=== PATIENT | female | born 1950 | race Caucasian/White ===

== ENCOUNTER 2017-05-11 20:52 | Emergency (ER) | payer OTHER | END 2017-05-11 22:52 | disposition home or self-care (01) | LOC: ERS 20:52 | DX: J01.10 Acute frontal sinusitis, unspecified (principal); E11.9 Type 2 diabetes mellitus without complications; K21.9 Gastro-esophageal reflux disease without esophagitis; I10 Essential (primary) hypertension; Z79.899 Other long term (current) drug therapy; Z79.84 Long term (current) use of oral hypoglycemic drugs | CPT/HCPCS: 99283 ==

== ENCOUNTER 2017-05-13 11:29 | Day surgery (SDC) | payer OTHER ==
[2017-05-12 10:12] VITALS: BMI 44.2
[2017-05-13] MEDS ORDERED: Lidocaine 1% PF 5 ML VIAL ONE (14:15)
--- NOTE | 2017-05-13 15:28 | OP ---
DATE OF PROCEDURE: 05/13/2017 SURGEON: Milad Yadav M.D. PREOPERATIVE DIAGNOSES: 1. Colorectal cancer screening. 2. Chronic abdominal bloating, nausea, and edema in the lower extremities. 3. History of fatty liver on ultrasound, mild elevation of AST and ALT, serologic evaluation 017 was negative for autoimmune liver disease, hemochromatosis, Dialn's disease, alpha 1 antitrypsin disease or viral hepatitis, AFP, hepatoma screening was negative. POSTOPERATIVE DIAGNOSES: 1. EGD normal with no evidence of varices. 2. Colonoscopy notable for 3 polyps from the splenic flexure to the transverse colon removed by snar e polypectomy from 3-5 mm in size. RECOMMENDATIONS: 1. Await histopathology regarding timing of repeat colonoscopy. 2. With regard to fatty liver recommend she follow up in 6 months, recommended low carbohydrate diet , weight loss. 3. Regarding anasarca and edema in the lower extremities, I recommend she follow up with her primary physician and Cardiology. No signs of overt cirrhosis. ANESTHESIA: TIVA. PROCEDURE IN DETAIL: After the patient was informed of the risks, benefits, possible complications o f endoscopy including perforation, bleeding, reaction to medication, and aspiration, informed consent was obtained. The patient brought to endoscopy suite where she was sedated in gradual fashion. Onc e she was comfortable, a bite block was placed in incisural orifice. The endoscope was advanced thro ugh the esophagus, stomach and second and third portion of duodenum and slowly removed. There was go od visualization of the esophagus, stomach and second and third portion of duodenum with no abnormali ties noted. Forward and retroflexed views in the stomach were normal. There was no evidence of port al hypertensive gastropathy or varices in the esophagus or stomach. The scope was removed. The patient was turned in the room. A rectal examination was performed. The endoscope was advanced through anal canal through the colon to cecum was identified by ileocecal valve and appendiceal orifi ce. The scope was then slowly removed with good visualization of the mucosa with a few diverticula s cattered throughout the colon. There were 3 polyps at transverse and splenic flexure of the colon up to 5 mm in size. These were sessile, removed by snare polypectomy, retrieved and submitted to Patho logy. Retroflexed views in the rectum were normal. The scope was removed. The patient tolerated th e procedure well with no complications.
== END 2017-05-13 16:05 | disposition home or self-care (01) ==
LOC: SDC 11:29
PROVIDERS: ATTEND Internal Medicine Gastroenterology
PROC: 0DJ08ZZ Inspection of Upper Intestinal Tract, Via Natural or Artificial Opening Endoscopic (ICD-10-PCS; principal; 2017-05-13)
PROC: 0DBL8ZX Excision of Transverse Colon, Via Natural or Artificial Opening Endoscopic, Diagnostic (ICD-10-PCS; principal; 2017-05-13)
DX: Z12.11 Encounter for screening for malignant neoplasm of colon (principal); D12.3 Benign neoplasm of transverse colon; R14.0 Abdominal distension (gaseous); K21.9 Gastro-esophageal reflux disease without esophagitis; E83.119 Hemochromatosis, unspecified; E83.01 Wilson's disease; E88.01 Alpha-1-antitrypsin deficiency; R60.1 Generalized edema; K76.0 Fatty (change of) liver, not elsewhere classified; E11.9 Type 2 diabetes mellitus without complications; M19.90 Unspecified osteoarthritis, unspecified site; M10.9 Gout, unspecified; Z79.84 Long term (current) use of oral hypoglycemic drugs; Z79.51 Long term (current) use of inhaled steroids; Z79.899 Other long term (current) drug therapy; Z88.6 Allergy status to analgesic agent; Z88.1 Allergy status to other antibiotic agents; Z88.8 Allergy status to other drugs, medicaments and biological substances; Z98.51 Tubal ligation status; Z90.49 Acquired absence of other specified parts of digestive tract; Z98.890 Other specified postprocedural states; Z86.711 Personal history of pulmonary embolism
CPT/HCPCS: 88305; J2001

== ENCOUNTER 2017-05-30 19:35 | Inpatient (IN) | payer OTHER ==
[~2017-05-30 19:35] MED LIST: ISOVUE-370 76%-LOCM 1 ML ONE
--- NOTE | 2017-05-30 21:10 | CT ---
CTA THORAX WITH CONTRAST: 05/30/17 (Computed Tomographic Angiography, chest(noncoronary) with contrast material, and image postprocessin g) (PE protocol) HISTORY: 66-year-old female with dyspnea and chest pain. TECHNIQUE: IV injection of iodinated contrast: Isovue Scan acquisition timing attempted to coincide with iodinated contrast bolus reaching maximal density in pulmonary arteries. 3D MIP reconstructions. FINDINGS: There is no evidence of pulmonary thromboembolism. No thoracic aortic dissection or aneurysm. Multipl e mildly enlarged mediastinal lymph nodes, nonspecific. No pleural effusion or pneumothorax. Plate-li ke densities, one at the right lower lobe and another at the lingula, consistent with either subsegme ntal atelectasis or scar. Otherwise, the lungs are clear. The cardiac size is mildly enlarged. No pne umothorax. IMPRESSION: 1. No evidence of pulmonary thromboembolism. 2. Borderline or mild cardiomegaly. [email or web address][] POS: [facility]
[2017-05-30 21:22] LABS: Troponin I Less than 0.010 ng/mL (< 0.028)
[2017-05-30] MEDS ORDERED: Ondansetron HCl/PF 4 MG/2 ML Vial IVP PRN (22:59)
[2017-05-30] MEDS ORDERED: Ondansetron ODT 4 MG TAB SL PRN (22:59)
[2017-05-30] MEDS ORDERED: Sodium Chloride 0.9% 1,000 ML IV SCH (22:59)
[2017-05-30 23:07] VITALS: BMI 43.1
[2017-05-31] MEDS ORDERED: Dextrose 50% Abboject 50 ML SYRINGE SLOW IVP PRN (01:47)
[2017-05-31] MEDS ORDERED: Dextrose 5% in Water 1,000 ML IV PRN (01:47)
[2017-05-31] MEDS ORDERED: HumaLOG 300 UNITS/3 ML VIAL SC PRN (01:47)
--- NOTE | 2017-05-31 01:58 | PDOC.EVN ---
Event Note - Event Note Event Note: [id number] h&p dictated 1. Chest pain + Dyspnea 2. HTN 3. Edema 4. Hyponatremia plan: see orders
--- NOTE | 2017-05-31 02:37 | HP ---
DATE OF ADMISSION: 05/31/2017 CHIEF COMPLAINT: Dyspnea, chest pain. HISTORY OF PRESENT ILLNESS: Patient is a 66-year-old female with past medical history of hypertensio n, gout, diabetes mellitus type 2, now came to ER because of chest pain. Chest pain started all of s udden this afternoon associated with some dyspnea also. Pain is moderate in intensity. Denies any r adiation, substernal, mild. Denies any pain at this time. Complains of dyspnea associated with even minimal exertion. Denies any cough, denies any sputum production, denies any nausea, denies any vom iting, denies any diarrhea. Chest pain did not radiate anywhere, currently pain resolved. PAST MEDICAL HISTORY: History of hypertension, gout, diabetes type 2. PAST SURGICAL HISTORY: Carpal tunnel surgery, tubal ligation. MEDICATIONS: Reviewed. SOCIAL HISTORY: Denies smoking, denies alcohol, denies any illicit drugs. FAMILY HISTORY: Positive for heart problems. REVIEW OF SYSTEMS: Constitutional: Denies any fever, denies any chills. Eyes: Denies any vision p roblems. Ears: Denies any hearing loss. Neck: Denies any neck pain. Cardiovascular system: Posi tive for chest pain. Positive for dyspnea. Respiratory system: Positive for cough. Cranial nerve s ystem: Denies syncope. Denies any lightheadedness. Psychiatric: Denies any depression, anxiety. Integument: Denies any rash. All other review of systems are reviewed and are negative. PHYSICAL EXAMINATION: CONSTITUTIONAL/VITAL SIGNS: At the time of H&P performed temperature is 99, heart rate is 83, respir ations 20, blood pressure is 95, blood pressure is 129/84, pulse ox 95%. GENERAL: Patient appears comfortable. HEENT: Pupils equal, round, and reactive to light. Anterior nares patent. Nose normal. Teeth inta ct. Tongue is moist. NECK: Supple. No JVD. CARDIOVASCULAR SYSTEM: S1, S2 present. Regular rate and rhythm. No murmurs, no rubs, no gallops. RESPIRATORY SYSTEM: No wheezing, no rhonchi. Breath sounds present bilaterally. ABDOMEN: Soft, nontender, no guarding, no organomegaly, no masses felt. MUSCULOSKELETAL: Bilateral lower extremities with 3+ edema. PSYCH: Mood is appropriate at this time. INTEGUMENTARY: Positive for dry skin. Positive for bilateral lower extremity blisters. CRANIAL NERVE SYSTEM: Cranial nerves intact. Follows commands. Strength intact. Sensory intact. LABORATORY DATA: At the time of H&P performed sodium 127, potassium 3.5, chloride 75, CO2 of 25, BUN of 28, creatinine 1.37. Uric acid 12.6 in 2016, troponin less than 0.010. CBC showed white count 1 2, hemoglobin 12.6, platelet count is 316. CT chest, no evidence of PE. ASSESSMENT AND PLAN: The patient is 66-year-old female, 1. Chest pain plus dyspnea. Plan to consult Cardiology to evaluate the patient. Plan to check 2D e cho. Plan to check serial cardiac enzymes. We will monitor the patient closely. 2. Bilateral lower extremity edema, which was chronic per patient. Plan to start patient on IV Lasi x 40 mg b.i.d. and we will check BNP also and we will monitor the patient closely. 3. Hyponatremia appears secondary to volume overload. Monitor sodium level closely. We will consul t Nephrology to evaluate patient. 4. Hypertension. Monitor blood pressure. Continue home blood pressure medications. 5. Gout. Continue home medications. The case was discussed in detail with the patient.
[2017-05-31 06:56] LABS: Troponin I 0.011 ng/mL (< 0.028)
[2017-05-31] MEDS ORDERED: FLU VACC QS2017-18 36 mo. & older 0.5 ML SYRINGE IM ONE (09:00)
[2017-05-31] MEDS ORDERED: Non-Formulary Item 1 EACH (Lansoprazole [Lansoprazole] 30 MG) PO SCH (09:00)
[2017-05-31] MEDS ORDERED: Furosemide 40 MG/4 ML VIAL SLOW IVP SCH (09:00)
[2017-05-31] MEDS ORDERED: Febuxostat [Uloric] 80 MG PO SCH (09:00)
[2017-05-31 09:06] LABS: Anion Gap 21 mmol/L (10-20); BUN (Urea Nitrogen) 13 mg/dL (9.8-20.1); Calc. Creatinine Clearance 86 mL/min (70-130); Carbon Dioxide 31 mmol/L (23-31); Chloride 79 mmol/L (98-107); Estimated GFR-MDRD 48
[2017-05-31] MEDS: Spironolactone 100 MG TAB PO SCH (10:44)
[2017-05-31] MEDS: Amlodipine 10 MG TAB PO SCH (10:44)
[2017-05-31] MEDS: glipiZIDE 5 MG TAB PO SCH (10:44)
[2017-05-31] MEDS: Colchicine 0.6 MG TAB PO SCH ×2 (10:45→21:14)
--- NOTE | 2017-05-31 10:52 | PDOC.PN ---
- Subjective Encounter Start Date: 05/31/17 Encounter Start Time: 07:30 Subjective: feels better, no sob -: has Lower extre edema with weeping -: no chest pain or palp - Objective MAR Reviewed: Yes Vital Signs & Weight: Vital Signs (12 hours) Temp Pulse Resp BP BP Pulse Ox 05/31/17 10:44 81 127/67 05/31/17 04:00 98.1 F 82 16 123/58 L 95 Weight Weight 243 lb 9.6 oz I&O: 05/30/17 05/31/17 06/01/17 06:59 06:59 06:59 Intake Total 120 Balance 120 Result Diagrams: 05/31/17 06:12 Additional Labs: Accuchecks 05/31/17 05/31/17 06:24 04:04 POC Glucose 114 H 131 H Phys Exam - Physical Examination HEENT: PERRLA, moist MMs Neck: no JVD, supple Respiratory: no wheezing, no rales Cardiovascular: RRR, no significant murmur Gastrointestinal: soft, non-tender, positive bowel sounds Musculoskeletal: pulses present, edema present Neurological: non-focal, moves all 4 limbs Psychiatric: A&O x 3 Dx/Plan (1) Bilateral lower extremity edema Code(s): R60.0 - LOCALIZED EDEMA Status: Acute (2) Morbid obesity with BMI of 40.0-44.9, adult Code(s): E66.01 - MORBID (SEVERE) OBESITY DUE TO EXCESS CALORIES; Z68.41 - BODY MASS INDEX (BMI) 40.0-44.9, ADULT Status: Chronic (3) Gout Code(s): M10.9 - GOUT, UNSPECIFIED Status: Chronic Qualifiers: Gout site: multiple sites (4) Diabetes mellitus type 2 in obese Code(s): E11.9 - TYPE 2 DIABETES MELLITUS WITHOUT COMPLICATIONS; E66.9 - OBESITY , UNSPECIFIED Status: Chronic (5) Hypertension Code(s): I10 - ESSENTIAL (PRIMARY) HYPERTENSION Status: Chronic Qualifiers: (6) Hyponatremia Code(s): E87.1 - HYPO-OSMOLALITY AND HYPONATREMIA Status: Acute - Plan bnp is 28, stress test 01/2015 was -ve -: prior h/o ?PE, await usg venous doppler -: long standing h/o edema LE with worsoning now plus oozing -: lasix 40 q12h, spironolactone, correct electrolytes -: await echo, prior ef 72% and heart was hyperdynamic then * . Review of Systems - Medications/Allergies Allergies/Adverse Reactions: Allergies Allergy/AdvReac Type Severity Reaction Status Date / Time cefuroxime Allergy "FACE Verified 05/30/17 23:10 SWELLING" celecoxib [From Celebrex] Allergy "UPSET Verified 05/30/17 23:10 STOMACH" epinephrine Allergy "CHILLS" Verified 05/30/17 23:10 moxifloxacin HCl Allergy "STOMACH Verified 05/30/17 23:10 [From Avelox] PAIN, DIAHRRHEA" naproxen sodium Allergy "STOP Verified 05/30/17 23:10 [From Anaprox] URINATING" rofecoxib [From Vioxx] Allergy "RASH" Verified 05/30/17 23:10 RELACON HC Allergy "RASH" Uncoded 05/12/16 14:58 VIOXX Allergy Uncoded 01/27/15 07:49 Medications: Current Medications Amlodipine Besylate (Norvasc) 10 mg PO DAILY [facility] Last Admin: 05/31/17 10:44 Dose: 10 mg Colchicine (Colcrys) 0.6 mg PO BID [facility] Last Admin: 05/31/17 10:45 Dose: 0.6 mg Dextrose/Water (Dextrose 50%) 25 gm SLOW IVP PRN PRN PRN Reason: Hypoglycemia Furosemide (Lasix) 40 mg SLOW IVP 0600,1400 [facility] Glipizide (Glucotrol) 5 mg PO DAILY-[facility] Last Admin: 05/31/17 10:44 Dose: 5 mg Glucagon (Glucagon) 1 mg IM PRN PRN PRN Reason: Hypoglycemia Dextrose/Water (D5w) 1,000 mls @ 0 mls/hr IV .Q0M PRN; As Directed PRN Reason: Hypoglycemia Insulin Human Lispro (Humalog) 0 units SC .MODERATE SLIDING SC PRN PRN Reason: Moderate Correctional Scale Insulin Human Lispro (Humalog) 0 units SC .BEDTIME SLIDING SC PRN PRN Reason: Bedtime Correctional Scale Montelukast Sodium (Singulair) 10 mg PO QPM [facility] Febuxostat [Uloric] (80 Mg) 80 mg PO DAILY [facility] Pantoprazole Sodium (Protonix) 40 mg PO DAILY [facility] Last Admin: 05/31/17 10:44 Dose: 40 mg Sodium Chloride (Flush - Normal Saline) 10 ml IVF Q12HR [facility] Last Admin: 05/31/17 10:43 Dose: 10 ml Sodium Chloride (Flush - Normal Saline) 10 ml IVF PRN PRN PRN Reason: Saline Flush Spironolactone (Aldactone) 50 mg PO DAILY [facility] Last Admin: 05/31/17 10:44 Dose: 50 mg
--- NOTE | 2017-05-31 11:07 | CON ---
DATE OF CONSULTATION: 05/31/2017 CONSULTING PHYSICIAN: Dr. Moo Romero. REASON FOR CONSULTATION: Hyponatremia. REASON FOR ADMISSION: Shortness of breath. HISTORY OF PRESENT ILLNESS: This is a 66-year-old female with history of hypertension, gout, type 2 diabetes, who came to the hospital with chest pain and shortness of breath and was found to have hypo natremia with sodium level of 127 and Nephrology is consulted. The patient still complains of shortn ess of breath, fluid overload and edema. No fever or chills, no nausea, vomiting. PAST MEDICAL HISTORY: Positive for hypertension, gout, type 2 diabetes. PAST SURGICAL HISTORY: Carpal tunnel surgery, tubal ligation. HOME MEDICATIONS: Include Demadex, Zofran, Vibramycin, metolazone, cholecalciferol, amlodipine, glip izide, spironolactone . ALLERGIES: CEFUROXIME, CELECOXIB, EPINEPHRINE, MOXIFLOXACIN, NAPROXEN SODIUM, AND REFOCOXIB. SOCIAL HISTORY: No smoking or alcohol use. FAMILY HISTORY: Positive for heart disease. REVIEW OF SYSTEMS: The following complete review of systems was negative, unless otherwise mentioned in the HPI or below: Constitutional: Weight loss or gain, ability to conduct usual activities. Skin: Rash, itching. Eyes: Double vision, pain. ENT/Mouth: Nose bleeding, neck stiffness, pain, tenderness. Cardiovascular: Palpitations, dyspnea on exertion, orthopnea. Respiratory: Shortness of breath, wheezing, cough, hemoptysis, fever or night sweats. Gastrointestinal: Poor appetite, abdominal pain, heartburn, nausea, vomiting, constipation, or diarr hea. Genitourinary: Urgency, frequency, dysuria, nocturia. Musculoskeletal: Pain, swelling. Neurologic/Psychiatric: Anxiety, depression. Allergy/Immunologic: Skin rash, bleeding tendency. PHYSICAL EXAMINATION: GENERAL: This is a morbidly obese female, in no apparent distress. VITAL SIGNS: Temperature 98.1, pulse 82, respiration 16, blood pressure 123/58. HEENT: Atraumatic, normocephalic. Oral mucosa is moist. NECK: Supple. CARDIOVASCULAR: S1, S2 heard. Rate and rhythm regular. RESPIRATORY: Clear. GASTROINTESTINAL: Abdomen is soft. MUSCULOSKELETAL: 2+ edema. DERMATOLOGIC: No skin rash. NEUROLOGIC: Alert and awake. PSYCHIATRIC: Normal mood and affect. LABORATORY DATA: Hemoglobin is 12.6, sodium is 127, creatinine is 1.3. ASSESSMENT AND PLAN: 1. Acute kidney injury on chronic kidney disease stage 3, most likely cardiorenal syndrome. 2. Hyponatremia secondary to fluid overload. Continue on Lasix and agree with cardiac workup includ ing echo. 3. Hypochloremia. 4. Edema with fluid overload. 5. Anemia, mild. 6. Morbid obesity. 7. Hypertension. Titrate medications. Continue on intravenous diuretics and will follow sodium closely. Agree with cardiac workup.
--- NOTE | 2017-05-31 11:13 | ULT ---
BILATERAL LOWER EXTREMITY VENOUS DUPLEX STUDY: TECHNIQUE: Color Doppler with spectral analysis and compression studies performed on the deep veins of both lowe r extremities. HISTORY: Lower extremity pain and edema. Skin change. FINDINGS: Deep veins of both lower extremities show normal compression and blood flow. No evidence of DVT iden tified. IMPRESSION: No evidence of lower extremity deep vein thrombosis. POS: [facility]
[2017-05-31] MEDS ORDERED: Potassium Chloride 20 MEQ TAB PO SCH ×2 (11:30→17:00)
[2017-05-31 11:50] LABS: Troponin I Less than 0.010 ng/mL (< 0.028)
[2017-05-31] MEDS: Furosemide 40 MG/4 ML VIAL SLOW IVP SCH (14:17)
[2017-05-31] MEDS: Potassium Chloride 20 MEQ TAB PO SCH ×2 (18:31→23:16)
[2017-05-31] MEDS: Montelukast Sodium 10 mg Tablet PO SCH (21:17)
[2017-05-31] MEDS ORDERED: Ondansetron ODT 4 MG TAB PO PRN (22:56)
[2017-06-01] MEDS: Furosemide 40 MG/4 ML VIAL SLOW IVP SCH ×2 (05:31→14:37)
[2017-06-01] MEDS: Potassium Chloride 20 MEQ TAB PO SCH ×4 (05:31→21:05)
[2017-06-01 06:01] LABS: #Eosinphils 0.2 thou/uL (0.0-0.7); #Lymphocytes 1.9 thou/uL (1.20-3.40); #Monocytes 0.7 thou/uL (0.11-0.59); #Neutrophils 3.4 thou/uL (1.40-6.50); %Basophils 0.5 % (0.0-1.0); %Lymphocytes 30.3 % (21.0-51.0); %Monocytes 11.2 % (0.0-10.0); Hematocrit 34.2 % (36.0-47.0); Mean Platelet Volume 8.3 fL (7.4-10.4); White Blood Cell (WBC) Count 6.3 thou/uL (4.8-10.8)
[2017-06-01 06:14] LABS: Anion Gap 14 mmol/L (10-20); BUN (Urea Nitrogen) 13 mg/dL (9.8-20.1); Calc. Creatinine Clearance 76 mL/min (70-130); Calcium 7.5 mg/dL (7.8-10.44); Carbon Dioxide 35 mmol/L (23-31); Chloride 80 mmol/L (98-107); Estimated GFR-MDRD 42
[2017-06-01] MEDS: glipiZIDE 5 MG TAB PO SCH (09:10)
[2017-06-01] MEDS: Colchicine 0.6 MG TAB PO SCH (09:11)
[2017-06-01] MEDS: Amlodipine 10 MG TAB PO SCH (09:11)
[2017-06-01] MEDS: Spironolactone 100 MG TAB PO SCH (09:11)
[2017-06-01] MEDS: HumaLOG 300 UNITS/3 ML VIAL SC PRN ×2 (10:59→17:10)
--- NOTE | 2017-06-01 11:19 | PDOC.PN ---
- Subjective Encounter Start Date: 06/01/17 Encounter Start Time: 08:20 Subjective: no sob or palp -: feels better, legs are not weeping now - Objective MAR Reviewed: Yes Vital Signs & Weight: Vital Signs (12 hours) Temp Pulse Resp BP Pulse Ox 06/01/17 09:11 73 06/01/17 08:00 98.8 F 73 17 117/56 L 96 06/01/17 04:00 98.3 F 81 20 113/57 L 94 L Weight Weight 239 lb 4.8 oz I&O: 05/31/17 06/01/17 06/02/17 06:59 06:59 06:59 Intake Total 120 1080 Output Total 550 Balance 120 530 Result Diagrams: 06/01/17 05:17 06/01/17 05:17 Additional Labs: Accuchecks 06/01/17 05/31/17 05/31/17 05:52 20:23 16:55 POC Glucose 131 H 197 H 125 H 05/31/17 11:27 POC Glucose 125 H Phys Exam - Physical Examination HEENT: PERRLA, moist MMs Neck: no JVD, supple Respiratory: no wheezing, no rales Cardiovascular: RRR, no significant murmur Gastrointestinal: soft, non-tender, positive bowel sounds Musculoskeletal: pulses present, edema present Neurological: non-focal, moves all 4 limbs Psychiatric: A&O x 3 Dx/Plan (1) Bilateral lower extremity edema Code(s): R60.0 - LOCALIZED EDEMA Status: Acute (2) Morbid obesity with BMI of 40.0-44.9, adult Code(s): E66.01 - MORBID (SEVERE) OBESITY DUE TO EXCESS CALORIES; Z68.41 - BODY MASS INDEX (BMI) 40.0-44.9, ADULT Status: Chronic (3) Gout Code(s): M10.9 - GOUT, UNSPECIFIED Status: Chronic Qualifiers: Gout site: multiple sites (4) Diabetes mellitus type 2 in obese Code(s): E11.9 - TYPE 2 DIABETES MELLITUS WITHOUT COMPLICATIONS; E66.9 - OBESITY , UNSPECIFIED Status: Chronic (5) Hypertension Code(s): I10 - ESSENTIAL (PRIMARY) HYPERTENSION Status: Chronic Qualifiers: Hypertension type: essential hypertension (6) Hyponatremia Code(s): E87.1 - HYPO-OSMOLALITY AND HYPONATREMIA Status: Acute - Plan diuresing well, leg edema is receding -: has chronic edema in her legs with worsoning and weeping -: tx pt to medical floor, 1 more day of iv lasix -: echo shows ef of 55%, will need outpt w/u for chronic edema, ?lymph/venous -: -stasis edema. Aortic valve is sclerotic with no stenosis or regurg. * . needs to wear jadiel hose/compression stocking to prevent reaccumulation of fluid in legs. Review of Systems - Medications/Allergies Allergies/Adverse Reactions: Allergies Allergy/AdvReac Type Severity Reaction Status Date / Time cefuroxime Allergy "FACE Verified 05/30/17 23:10 SWELLING" celecoxib [From Celebrex] Allergy "UPSET Verified 05/30/17 23:10 STOMACH" epinephrine Allergy "CHILLS" Verified 05/30/17 23:10 moxifloxacin HCl Allergy "STOMACH Verified 05/30/17 23:10 [From Avelox] PAIN, DIAHRRHEA" naproxen sodium Allergy "STOP Verified 05/30/17 23:10 [From Anaprox] URINATING" rofecoxib [From Vioxx] Allergy "RASH" Verified 05/30/17 23:10 RELACON HC Allergy "RASH" Uncoded 05/12/16 14:58 VIOXX Allergy Uncoded 01/27/15 07:49 Medications: Current Medications Amlodipine Besylate (Norvasc) 10 mg PO DAILY [facility] Last Admin: 06/01/17 09:11 Dose: 10 mg Colchicine (Colcrys) 0.6 mg PO BID [facility] Last Admin: 06/01/17 09:11 Dose: 0.6 mg Dextrose/Water (Dextrose 50%) 25 gm SLOW IVP PRN PRN PRN Reason: Hypoglycemia Furosemide (Lasix) 40 mg SLOW IVP 0600,1400 [facility] Last Admin: 06/01/17 05:31 Dose: 40 mg Glipizide (Glucotrol) 5 mg PO DAILY-[facility] Last Admin: 06/01/17 09:10 Dose: 5 mg Glucagon (Glucagon) 1 mg IM PRN PRN PRN Reason: Hypoglycemia Dextrose/Water (D5w) 1,000 mls @ 0 mls/hr IV .Q0M PRN; As Directed PRN Reason: Hypoglycemia Insulin Human Lispro (Humalog) 0 units SC .MODERATE SLIDING SC PRN PRN Reason: Moderate Correctional Scale Last Admin: 06/01/17 10:59 Dose: 2 unit Insulin Human Lispro (Humalog) 0 units SC .BEDTIME SLIDING SC PRN PRN Reason: Bedtime Correctional Scale Montelukast Sodium (Singulair) 10 mg PO QPM [facility] Last Admin: 05/31/17 21:17 Dose: Not Given Febuxostat [Uloric] (80 Mg) 80 mg PO DAILY [facility] Ondansetron HCl (Zofran Odt) 4 mg PO Q6H PRN PRN Reason: Nausea/Vomiting Pantoprazole Sodium (Protonix) 40 mg PO DAILY [facility] Last Admin: 06/01/17 09:11 Dose: 40 mg Potassium Chloride (K-Dur) 40 meq PO 0300,0900,1500,2100 [facility] Stop: 06/02/17 15:01 Last Admin: 06/01/17 09:50 Dose: 40 meq Sodium Chloride (Flush - Normal Saline) 10 ml IVF Q12HR [facility] Last Admin: 06/01/17 09:11 Dose: 10 ml Sodium Chloride (Flush - Normal Saline) 10 ml IVF PRN PRN PRN Reason: Saline Flush Spironolactone (Aldactone) 50 mg PO DAILY [facility] Last Admin: 06/01/17 09:11 Dose: 50 mg
--- NOTE | 2017-06-01 14:58 | PRG ---
DATE OF SERVICE: 06/01/2017 SUBJECTIVE: Patient was seen and examined at bedside and overnight events noted. Patient denies any shortness of breath or chest pain or palpitation. No history of nausea or vomiting or diarrhea or f ever or chills or cramps. OBJECTIVE: GENERAL: This is an obese female, in no apparent distress. VITAL SIGNS: Temperature 96, pulse 86, respiratory 17, blood pressure 130/62. HEENT: Atraumatic, normocephalic. Oral mucosa is moist. NECK: Supple. CARDIOVASCULAR: S1, S2 heard. Rate and rhythm regular. RESPIRATORY: Clear to auscultation. GASTROINTESTINAL: Abdomen is soft. MUSCULOSKELETAL: No tenderness, no edema. DERMATOLOGIC: No skin rash. NEUROLOGIC: Alert and awake and oriented x3. No focal neurologic deficits. Moving all the extremit ies. PSYCHIATRIC: Mood and affect normal. LABORATORY DATA: Potassium is 2.9, BUN 13, creatinine 1.2. ASSESSMENT AND PLAN: 1. Acute kidney injury on chronic kidney disease secondary to volume depletion. She does have alkal osis, hypokalemia and elevated creatinine today. Most likely her edema is venostasis, less likely re spond to Lasix and increase the chance of kidney injury, I would recommend to reduce the Lasix dose o r his hyponatremia getting worse. 2. Hypochloremia. 3. Edema, most likely from venous stasis. 4. Anemia, mild. 5. Morbid obesity. 6. Hypertension - stable. RECOMMENDATIONS: Cautious use of diuretics. We will recommend tight stockings or wraps for the leg and rule out lymphedema and we will follow. Replace potassium aggressively and monitor potassium and magnesium level. Thank you for the consult. We will follow.
[2017-06-01] MEDS ORDERED: Mag-Al 1200 mg/1200 mg/30 ML UDCUP PO SCH (17:45)
[2017-06-01] MEDS ORDERED: diphenhydrAMINE 50 MG/ML VIAL ONE (17:51)
[2017-06-01] MEDS ORDERED: diphenhydrAMINE 50 MG/ML VIAL IVP SCH (18:00)
[2017-06-01] MEDS ORDERED: Nitroglycerin 2% Ointment 1 INCH/1 GM Packet TOP SCH (19:15)
[2017-06-01] MEDS ORDERED: Morphine 4 MG/ML VIAL ONE (19:16)
[2017-06-01 19:31] LABS: ALT (SGPT) 65 U/L (8-55); AST (SGOT) 121 U/L (5-34); Alkaline Phosphatase 150 U/L (40-150); Anion Gap 19 mmol/L (10-20); BUN (Urea Nitrogen) 15 mg/dL (9.8-20.1); Bilirubin, Total 1.1 mg/dL (0.2-1.2); Calc. Creatinine Clearance 69 mL/min (70-130); Calcium 8.4 mg/dL (7.8-10.44); Carbon Dioxide 30 mmol/L (23-31); Chloride 79 mmol/L (98-107); Estimated GFR-MDRD 37; Globulin 3.1 g/dL (2.4-3.5); Protein, Total 7.2 g/dL (6.0-8.3)
[2017-06-01 19:40] LABS: Troponin I 0.011 ng/mL (< 0.028)
[2017-06-01] MEDS ORDERED: Lorazepam 2 MG/ML VIAL SLOW IVP PRN (20:26)
[2017-06-01] MEDS ORDERED: Sodium Chloride 0.9% 1,000 ML IV SCH (20:30)
[2017-06-01] MEDS ORDERED: Morphine 4 MG/ML VIAL SLOW IVP PRN (20:31)
[2017-06-01] MEDS: Famotidine/PF 20 mg/2ml Vial SLOW IVP SCH (21:04)
[2017-06-01] MEDS: Montelukast Sodium 10 mg Tablet PO SCH (21:05)
[2017-06-01] MEDS: Nitroglycerin 2% Ointment 1 INCH/1 GM Packet TOP SCH (21:17)
[2017-06-01 22:23] LABS: Anion Gap 20 mmol/L (10-20); BUN (Urea Nitrogen) 16 mg/dL (9.8-20.1); Calc. Creatinine Clearance 64 mL/min (70-130); Calcium 8.4 mg/dL (7.8-10.44); Carbon Dioxide 27 mmol/L (23-31); Chloride 82 mmol/L (98-107); Estimated GFR-MDRD 34
[2017-06-01 22:28] LABS: Troponin I Less than 0.010 ng/mL (< 0.028)
[2017-06-02 01:40] LABS: Troponin I Less than 0.010 ng/mL (< 0.028)
[2017-06-02] MEDS: Nitroglycerin 2% Ointment 1 INCH/1 GM Packet TOP SCH (05:41)
[2017-06-02 05:59] LABS: Anion Gap 18 mmol/L (10-20); BUN (Urea Nitrogen) 16 mg/dL (9.8-20.1); Calc. Creatinine Clearance 71 mL/min (70-130); Carbon Dioxide 23 mmol/L (23-31); Chloride 88 mmol/L (98-107); Estimated GFR-MDRD 38
[2017-06-02 07:48] VITALS: BP 114/61; TEMP 98.2
[2017-06-02] MEDS: HumaLOG 300 UNITS/3 ML VIAL SC PRN (08:25)
[2017-06-02] MEDS: Famotidine/PF 20 mg/2ml Vial SLOW IVP SCH (08:26)
[2017-06-02] MEDS: Amlodipine 10 MG TAB PO SCH (08:26)
[2017-06-02] MEDS: glipiZIDE 5 MG TAB PO SCH (08:27)
--- NOTE | 2017-06-02 11:48 | PDOC.PN ---
- Subjective Encounter Start Date: 06/02/17 Encounter Start Time: 08:00 Subjective: no chest tightness or sob or abd pain -: feels good, is amb in room -: her legs feel better with less edema - Objective MAR Reviewed: Yes Vital Signs & Weight: Vital Signs (12 hours) Temp Pulse Resp BP BP Pulse Ox 06/02/17 08:26 70 114/61 06/02/17 07:05 98.2 F 70 18 114/61 94 L 06/02/17 03:04 98.5 F 67 16 114/62 97 Weight Weight 239 lb 8 oz I&O: 06/01/17 06/02/17 06/03/17 06:59 06:59 06:59 Intake Total 1080 1323 Output Total 550 Balance 530 1323 Result Diagrams: 06/01/17 05:17 06/02/17 05:24 Additional Labs: Accuchecks 06/02/17 06/01/17 06/01/17 05:47 21:01 16:09 POC Glucose 214 H 207 H 183 H 06/01/17 10:56 POC Glucose 197 H Phys Exam - Physical Examination HEENT: PERRLA, moist MMs Neck: no JVD, supple Respiratory: no wheezing, no rales Cardiovascular: RRR, no significant murmur Gastrointestinal: soft, non-tender, positive bowel sounds Musculoskeletal: pulses present, edema present Neurological: non-focal, moves all 4 limbs Psychiatric: A&O x 3 Dx/Plan (1) Bilateral lower extremity edema Code(s): R60.0 - LOCALIZED EDEMA Status: Acute (2) Morbid obesity with BMI of 40.0-44.9, adult Code(s): E66.01 - MORBID (SEVERE) OBESITY DUE TO EXCESS CALORIES; Z68.41 - BODY MASS INDEX (BMI) 40.0-44.9, ADULT Status: Chronic (3) Gout Code(s): M10.9 - GOUT, UNSPECIFIED Status: Chronic Qualifiers: Gout site: multiple sites (4) Diabetes mellitus type 2 in obese Code(s): E11.9 - TYPE 2 DIABETES MELLITUS WITHOUT COMPLICATIONS; E66.9 - OBESITY , UNSPECIFIED Status: Chronic (5) Hypertension Code(s): I10 - ESSENTIAL (PRIMARY) HYPERTENSION Status: Chronic Qualifiers: Hypertension type: essential hypertension (6) Hyponatremia Code(s): E87.1 - HYPO-OSMOLALITY AND HYPONATREMIA Status: Chronic - Plan to continue home regimen of spironolactone and torsemide -: dc pt home -: pt counselled to wear thigh high compression stockings for her legs -: likely has chronic hyponatremia, bmp on * .
--- NOTE | 2017-06-02 12:10 | PRG ---
DATE OF SERVICE: 06/02/2017 SUBJECTIVE: This is a 66-year-old female, being seen for hyponatremia and CKD. The patient denies a ny nausea, vomiting, or chest pain. PHYSICAL EXAMINATION: GENERAL: The patient is awake, alert, in no acute distress. VITAL SIGNS: Afebrile, pulse 70, breathing at 16, blood pressure 114/61. OBJECTIVE: See above. GENERAL APPEARANCE AND MENTAL STATUS: Fair. HEAD/NECK: Normocephalic. Atraumatic. EYES: EOMI. No deformity. EARS: Clear. No ulcers. NOSE: Intact. No lesions. MOUTH: Clear. No discharge. THROAT: Clear. No exudate. LUNGS: Clear. No crackles. CARDIAC: S1, S2. No rub. ABDOMEN: Benign. BS+. GENITALIA/RECTUM: Best absent. BACK/EXTREMITIES: Edema 0+ Ulcer- NEUROLOGICAL: Alert and motor intact. SKIN: Rash- Bruise- LYMPHATICS: Edema- Ulcer- LABORATORY DATA: Sodium is 124, potassium is 5, creatinine 1.3. RECOMMENDATIONS: 1. Acute kidney injury, improving. 2. Hyponatremia, multifactorial. I would recommend fluid restriction and recheck sodium tomorrow. 3. Hypertension, stable. Medications based on GFR are appropriate. The patient will follow up with Dr. Cabral tomorrow.
--- NOTE | 2017-06-02 14:23 | DIS ---
DATE OF ADMISSION: 05/30/2017 DATE OF DISCHARGE: 06/02/2017 DISCHARGE DISPOSITION: To home. PRIMARY DISCHARGE DIAGNOSES: Bilateral lower extremity edema likely due to stasis, either venous or lymphedema, morbid obesity. SECONDARY DISCHARGE DIAGNOSES: Diabetes mellitus type 2, hypertension, gout, likely chronic hyponatr emia. PROCEDURES DONE DURING HOSPITALIZATION: The patient has had CT angio chest done on the day of admiss [facility] which showed no evidence of PE. There was mild cardiomegaly. Echo with 2D Doppler showed EF of 55%-60%, aortic valve was sclerotic, AV cusp separation was 1.63 cm, aortic root dimension was 2.57 c m. Ultrasound of venous Doppler of lower extremities showed no evidence of DVT. Hemoglobin and prasanna tocrit 11 and 34, platelet count 211. Discharge sodium of 124, BUN 16, creatinine 1.38. Cardiac enz ymes x3 were negative. BNP was 37.2. DISCHARGE MEDICATIONS: Xanax p.r.n. for anxiety, Norvasc 10 mg p.o. daily, vitamin D3 daily, Uloric 80 mg p.o. daily, glipizide 5 mg p.o. daily, lansoprazole 30 mg p.o. daily, metformin 1000 mg p.o. q. p.m., multivitamin 1 tab once daily, spironolactone 50 mg daily, torsemide 100 mg p.o. daily. ALLERGIES: Allergic to MOXIFLOXACIN, EPINEPHRINE, CEFUROXIME, CELECOXIB, NAPROSYN. DISCHARGE PLAN: Patient to follow up with primary care physician in 1 week. She also needs to follo w up with Dr. Cabral for Nephrology for her chronic hyponatremia in 1 week with metabolic panel. BRIEF COURSE DURING HOSPITALIZATION: The patient initially got admitted on with complaints of s hortness of breath, chest pain, and lower extremity edema with oozing and weeping. Patient was admit jadiel to telemetry and was closely monitored. She has had an echo done which showed normal ejection fr action. She had aortic valve sclerosis, but no stenosis or regurgitation. The patient had lower ext remity edema for which she was gently diuresed. Her sodium has remained more or less same, this like ly is chronic due to her lower extremity edema/SIADH. A CT angio and ultrasound venous Doppler did n ot reveal any thrombus. She has diuresed well and is ambulating well now. The patient needs to wear compression stockings for her lower extremity. She also needs to have further workup for the chroni c lower extremity edema. This likely is due to dural venous stasis or edema which needs further work up. She was counseled to buy compression stockings to wear. She was counseled to wear thigh-high co mpression stockings to prevent edema from coming back. She needs to continue her home regimen of tor semide and spironolactone as before. Patient was given a prescription for Xanax p.r.n. for anxiety. She is otherwise hemodynamically stable and will be shortly discharged home. Please see face to fac e documentation on [facility] for the day of discharge.
== END 2017-06-02 10:59 | disposition home or self-care (01) | DRG 303 ==
LOC: ERS 19:35 → 2NO 20:25 → ONC 06-01 11:40 → 2SE 06-01 19:45
PROVIDERS: ADMIT Internal Medicine Addiction Medicine; ATTEND Internal Medicine Addiction Medicine
DX: I87.8 Other specified disorders of veins (principal); N17.9 Acute kidney failure, unspecified; E22.2 Syndrome of inappropriate secretion of antidiuretic hormone; E87.8 Other disorders of electrolyte and fluid balance, not elsewhere classified; N18.3 Chronic kidney disease, stage 3 (moderate); Z68.41 Body mass index [BMI] 40.0-44.9, adult; I89.0 Lymphedema, not elsewhere classified; I12.9 Hypertensive chronic kidney disease with stage 1 through stage 4 chronic kidney disease, or unspecified chronic kidney disease; E66.01 Morbid (severe) obesity due to excess calories; E11.9 Type 2 diabetes mellitus without complications; M10.9 Gout, unspecified; E86.9 Volume depletion, unspecified; I35.8 Other nonrheumatic aortic valve disorders; Z88.1 Allergy status to other antibiotic agents; Z88.8 Allergy status to other drugs, medicaments and biological substances; Z82.49 Family history of ischemic heart disease and other diseases of the circulatory system
CPT/HCPCS: 36415; 36416; 71275; 80048; 82553; 83880; 84484; 85025; 90471; 90682; 93005; 93010; 93306; 93970; A4216; G0008; J1200; J1940; J2270; J2920; Q0162; Q2036; S0028

== ENCOUNTER 2017-07-23 01:53 | Emergency (ER) | payer OTHER ==
[2017-07-23] MEDS ORDERED: methylPREDNISolone Sod Succ/PF 125 MG/2 ML VIAL ONE (03:33)
[2017-07-23] MEDS ORDERED: Famotidine/PF 20 mg/2ml Vial ONE (03:33)
== END 2017-07-23 05:00 | disposition home or self-care (01) ==
LOC: ERS 01:53
DX: R11.0 Nausea (principal); L29.9 Pruritus, unspecified; T37.8X5A Adverse effect of other specified systemic anti-infectives and antiparasitics, initial encounter; E11.9 Type 2 diabetes mellitus without complications; K21.9 Gastro-esophageal reflux disease without esophagitis; I10 Essential (primary) hypertension; E66.9 Obesity, unspecified; Z79.899 Other long term (current) drug therapy; Z79.84 Long term (current) use of oral hypoglycemic drugs
CPT/HCPCS: 36416; 96361; 96374; 96375; J2930; S0028

== ENCOUNTER 2017-08-15 09:18 | Outpatient (CLI) | payer OTHER ==
[2017-08-15] MEDS ORDERED: Iopamidol 370 76% 100 ML VIAL ONE (14:27)
== END 2017-08-15 09:19 | disposition home or self-care (01) ==
LOC: BICCT 09:18
PROVIDERS: ATTEND Internal Medicine Gastroenterology
DX: K21.9 Gastro-esophageal reflux disease without esophagitis (principal); K58.9 Irritable bowel syndrome, unspecified; K75.81 Nonalcoholic steatohepatitis (NASH); D25.9 Leiomyoma of uterus, unspecified; K43.9 Ventral hernia without obstruction or gangrene; R14.0 Abdominal distension (gaseous); K57.30 Diverticulosis of large intestine without perforation or abscess without bleeding; R16.1 Splenomegaly, not elsewhere classified
CPT/HCPCS: 74177

== ENCOUNTER 2018-09-21 08:11 | Emergency (ER) | payer MEDICARE | END 2018-09-21 08:36 | disposition home or self-care (01) | LOC: SCSER 08:11 | DX: J30.2 Other seasonal allergic rhinitis (principal); E11.9 Type 2 diabetes mellitus without complications; K21.9 Gastro-esophageal reflux disease without esophagitis; E78.5 Hyperlipidemia, unspecified; I10 Essential (primary) hypertension; F41.9 Anxiety disorder, unspecified; Z79.84 Long term (current) use of oral hypoglycemic drugs; Z79.899 Other long term (current) drug therapy | CPT/HCPCS: 99281 ==

== ENCOUNTER 2020-07-11 18:22 | Inpatient (IN) | payer MEDICARE, OTHER ==
[~2020-07-11 18:22] MED LIST changes: -ISOVUE-370 76%-LOCM 1 ML ONE; +Iopamidol-370 76% 500 ML 1 ML ONE
[2020-07-11 19:17] LABS: #Basophils 0.1 thou/uL (0.0-0.2); #Eosinphils 0.2 thou/uL (0.0-0.7); #Lymphocytes 2.7 thou/uL (1.20-3.40); #Monocytes 0.5 thou/uL (0.11-0.59); #Neutrophils 5.6 thou/uL (1.40-6.50); %Basophils 0.7 % (0.0-1.0); %Eosinophils 2.3 % (0.0-10.0); %Monocytes 5.3 % (0.0-10.0); %Neutrophils 61.7 % (42.0-75.0); Mean Corpuscular HGB CONC 32.6 g/dL (32.0-36.0); Mean Corpuscular Hemoglobin 28.1 pg (27.0-31.0); Mean Corpuscular Volume 86.1 fL (78.0-98.0); Mean Platelet Volume 8.3 fL (7.4-10.4); Platelet Count 196 thou/uL (130-400); RBC Distribution Width 15.7 % (11.5-14.5); Red Blood Cell (RBC) Count 4.27 mill/uL (4.20-5.40); White Blood Cell (WBC) Count 9.1 thou/uL (4.8-10.8)
[2020-07-11 19:39] LABS: ALT (SGPT) 14 U/L (8-55); AST (SGOT) 23 U/L (5-34); Alkaline Phosphatase 103 U/L (40-110); Anion Gap 16 mmol/L (10-20); BUN (Urea Nitrogen) 12 mg/dL (9.8-20.1); Bilirubin, Total 0.6 mg/dL (0.2-1.2); Calc. Creatinine Clearance 0 mL/min (70-130); Calcium 9.3 mg/dL (7.8-10.44); Carbon Dioxide 22 mmol/L (23-31); Chloride 106 mmol/L (98-107); Globulin 3.5 g/dL (2.4-3.5); Glucose 104 mg/dL (80-115); Potassium 4.3 mmol/L (3.5-5.1); Protein, Total 7.5 g/dL (5.8-8.1); Sodium 140 mmol/L (136-145)
[2020-07-11] MEDS ORDERED: Azithromycin 500 MG VIAL ONE (20:37)
[2020-07-11] MEDS ORDERED: Dexamethasone 10 MG/ML VIAL ONE (20:59)
[2020-07-11] MEDS ORDERED: ALPRAZolam 0.25 MG TAB PO PRN (23:10)
[2020-07-11] MEDS ORDERED: Ondansetron PF 4 MG/2 ML Vial IVP PRN (23:11)
[2020-07-11] MEDS ORDERED: hydrALAZINE 20 MG/ML VIAL SLOW IVP PRN (23:11)
[2020-07-11] MEDS ORDERED: Acetaminophen 325 MG TAB PO PRN (23:11)
[2020-07-11] MEDS ORDERED: HYDROcodone/Acetaminophen 5/325 mg Tablet PO PRN (23:11)
[2020-07-11] MEDS ORDERED: Labetalol HCl 100 MG/20 ML VIAL SLOW IVP PRN (23:11)
[2020-07-11] MEDS ORDERED: Guaifenesin DM 100-10/5 ML UDCUP PO PRN (23:11)
[2020-07-11] MEDS ORDERED: cloNIDine 0.1 MG TAB PO PRN (23:11)
[2020-07-11] MEDS ORDERED: Promethazine HCl 12.5 MG in Sodium Chloride 0.9% 50 ML IVPB PRN (23:11)
[2020-07-11] MEDS ORDERED: Dextrose 50% Abboject 50 ML SYRINGE SLOW IVP PRN (23:14)
[2020-07-11] MEDS ORDERED: Dextrose 5% in Water 1,000 ML IV PRN (23:14)
[2020-07-11] MEDS ORDERED: cefTRIAXone\\ROCEPHIN 1 GM in Sodium Chloride 0.9% 100 ML IVPB SCH (23:15)
[2020-07-11] MEDS ORDERED: Electrolyte Replacement Protocol 1 EACH FS SCH (23:15)
[2020-07-12] MEDS: Mometasone 100 MCG/Formoterol 5 MCG 120 PUFF INHALER INH SCH ×2 (06:07→17:08)
[2020-07-12 06:33] LABS: Band 3 % (5-11); Hemoglobin 11.6 g/dL (12.0-16.0); Lymphocytes 13 % (21-51); MDiff Complete? YES; Mean Corpuscular HGB CONC 31.6 g/dL (32.0-36.0); Mean Corpuscular Hemoglobin 27.2 pg (27.0-31.0); Mean Platelet Volume 8.4 fL (7.4-10.4); Neutrophil 84 % (42-75); Platelet Count 187 thou/uL (130-400); Platelet Morphology Comment Appears Adequate; RBC Distribution Width 15.4 % (11.5-14.5); Red Blood Cell (RBC) Count 4.28 mill/uL (4.20-5.40); White Blood Cell (WBC) Count 6.4 thou/uL (4.8-10.8)
[2020-07-12 06:44] LABS: Anion Gap 16 mmol/L (10-20); BUN (Urea Nitrogen) 12 mg/dL (9.8-20.1); Calc. Creatinine Clearance 79 mL/min (70-130); Calcium 9.2 mg/dL (7.8-10.44); Carbon Dioxide 19 mmol/L (23-31); Chloride 107 mmol/L (98-107); Glucose 231 mg/dL (80-115); Magnesium 1.8 mg/dL (1.6-2.6); Potassium 4.2 mmol/L (3.5-5.1); Sodium 138 mmol/L (136-145)
[2020-07-12] MEDS ORDERED: Magnesium 2 GM/50 ML 2 GM in Premix Bag 1 BAG IVPB SCH (07:45)
[2020-07-12] MEDS: Amlodipine 10 MG TAB PO SCH (08:49)
[2020-07-12] MEDS: Spironolactone 25 MG TAB PO SCH (08:49)
[2020-07-12] MEDS: Dexamethasone 4 mg/ml Vial SLOW IVP SCH (08:49)
[2020-07-12] MEDS: Torsemide 100 MG TAB PO SCH ×3 (08:50→18:45)
[2020-07-12] MEDS ORDERED: Febuxostat 40 MG TAB PO SCH (09:00)
[2020-07-12] MEDS: Fluticasone Propionate Nasal Spray 16 gm Bottle NASAL SCH (11:43)
[2020-07-12] MEDS: HumaLOG 300 UNITS/3 ML VIAL SC PRN ×3 (11:48→21:21)
[2020-07-12 12:24] LABS: Bacteria/HPF None Seen HPF (None Seen); Bilirubin Negative (Negative); Blood, Urine Negative (Negative); Clarity Clear (Clear); Glucose, Urine (Dipstick) Normal (Negative); Ketone, Urine 20 mg/dL (Negative); Leukocyte Negative Leu/uL (Negative); Nitrite Negative (Negative); Protein, Urine (Dipstick) 10 mg/dL (Neg-Trace); RBC/HPF 0-3 HPF (0-3); Specific Gravity, Urine 1.017 (1.002-1.036); Squamous Epithelial 0-3 HPF (0-3); Urobilinogen Normal mg/dL (Less than 2); WBC/HPF 0-3 HPF (0-3)
[2020-07-12] MEDS: Azithromycin 500 MG in Sodium Chloride 0.9% 250 ML 250 ML IVPB SCH (20:15)
[2020-07-12] MEDS: Enoxaparin Sodium 40 MG/0.4 ML SYRINGE SC SCH (20:15)
[2020-07-12] MEDS: cefTRIAXone\\ROCEPHIN 1 GM in Sodium Chloride 0.9% 100 ML IVPB SCH (20:49)
[2020-07-12] MEDS ORDERED: FLU VACC QS2020-21(65YR UP)/PF 240 MCG/0.7 ML SYRINGE IM ONE (21:00)
[2020-07-12] MEDS: Azelastine 137 MCG/Spray 30 ML NS SCH (21:41)
[2020-07-13] MEDS: HumaLOG 300 UNITS/3 ML VIAL SC PRN ×4 (05:13→21:06)
[2020-07-13] MEDS: Mometasone 100 MCG/Formoterol 5 MCG 120 PUFF INHALER INH SCH ×2 (06:04→17:34)
[2020-07-13 06:24] VITALS: BMI 37.0
[2020-07-13 07:00] LABS: #Lymphocytes 1.1 thou/uL (1.20-3.40); #Monocytes 0.5 thou/uL (0.11-0.59); %Basophils 0.1 % (0.0-1.0); %Eosinophils 0.1 % (0.0-10.0); %Lymphocytes 12.7 % (21.0-51.0); %Monocytes 5.8 % (0.0-10.0); %Neutrophils 81.2 % (42.0-75.0); Hemoglobin 11.2 g/dL (12.0-16.0); Mean Corpuscular HGB CONC 32.7 g/dL (32.0-36.0); Mean Corpuscular Hemoglobin 28.7 pg (27.0-31.0); Mean Platelet Volume 8.5 fL (7.4-10.4); Platelet Count 192 thou/uL (130-400); RBC Distribution Width 15.6 % (11.5-14.5); White Blood Cell (WBC) Count 8.6 thou/uL (4.8-10.8)
[2020-07-13 07:18] LABS: Anion Gap 16 mmol/L (10-20); BUN (Urea Nitrogen) 21 mg/dL (9.8-20.1); Calc. Creatinine Clearance 68 mL/min (70-130); Calcium 8.9 mg/dL (7.8-10.44); Carbon Dioxide 20 mmol/L (23-31); Chloride 107 mmol/L (98-107); Glucose 222 mg/dL (80-115); Magnesium 2.4 mg/dL (1.6-2.6); Potassium 4.5 mmol/L (3.5-5.1); Sodium 138 mmol/L (136-145)
[2020-07-13] MEDS: Amlodipine 10 MG TAB PO SCH (08:48)
[2020-07-13] MEDS: Spironolactone 25 MG TAB PO SCH (08:48)
[2020-07-13] MEDS: Dexamethasone 4 mg/ml Vial SLOW IVP SCH (08:48)
[2020-07-13] MEDS: Torsemide 100 MG TAB PO SCH (08:48)
[2020-07-13] MEDS: Fluticasone Propionate Nasal Spray 16 gm Bottle NASAL SCH (08:51)
[2020-07-13] MEDS: cefTRIAXone\\ROCEPHIN 1 GM in Sodium Chloride 0.9% 100 ML IVPB SCH (21:02)
[2020-07-13] MEDS: Enoxaparin Sodium 40 MG/0.4 ML SYRINGE SC SCH (21:03)
[2020-07-13] MEDS: Azelastine 137 MCG/Spray 30 ML NS SCH (21:16)
[2020-07-13] MEDS: Azithromycin 500 MG in Sodium Chloride 0.9% 250 ML 250 ML IVPB SCH (22:17)
[2020-07-14 06:27] LABS: #Lymphocytes 1.7 thou/uL (1.20-3.40); #Monocytes 0.5 thou/uL (0.11-0.59); %Basophils 0.2 % (0.0-1.0); %Eosinophils 0.2 % (0.0-10.0); %Lymphocytes 20.4 % (21.0-51.0); %Monocytes 6.2 % (0.0-10.0); Hemoglobin 11.4 g/dL (12.0-16.0); Mean Corpuscular HGB CONC 32.1 g/dL (32.0-36.0); Mean Corpuscular Hemoglobin 27.5 pg (27.0-31.0); Mean Corpuscular Volume 85.6 fL (78.0-98.0); Mean Platelet Volume 8.5 fL (7.4-10.4); Platelet Count 215 thou/uL (130-400); RBC Distribution Width 15.5 % (11.5-14.5); Red Blood Cell (RBC) Count 4.14 mill/uL (4.20-5.40); White Blood Cell (WBC) Count 8.3 thou/uL (4.8-10.8)
[2020-07-14 06:47] LABS: Anion Gap 15 mmol/L (10-20); BUN (Urea Nitrogen) 38 mg/dL (9.8-20.1); Calc. Creatinine Clearance 50 mL/min (70-130); Carbon Dioxide 25 mmol/L (23-31); Chloride 103 mmol/L (98-107); Glucose 203 mg/dL (80-115); Magnesium 2.2 mg/dL (1.6-2.6); Potassium 3.9 mmol/L (3.5-5.1); Sodium 139 mmol/L (136-145)
[2020-07-14] MEDS: Mometasone 100 MCG/Formoterol 5 MCG 120 PUFF INHALER INH SCH ×2 (07:28→17:42)
[2020-07-14] MEDS: Dexamethasone 4 mg/ml Vial SLOW IVP SCH (08:37)
[2020-07-14] MEDS: Torsemide 20 MG TAB PO SCH (08:38)
[2020-07-14] MEDS: Spironolactone 25 MG TAB PO SCH (08:39)
[2020-07-14] MEDS: Amlodipine 10 MG TAB PO SCH (08:39)
[2020-07-14] MEDS: Fluticasone Propionate Nasal Spray 16 gm Bottle NASAL SCH (08:41)
[2020-07-14] MEDS: HumaLOG 300 UNITS/3 ML VIAL SC PRN ×3 (12:36→20:27)
[2020-07-14] MEDS: cefTRIAXone\\ROCEPHIN 1 GM in Sodium Chloride 0.9% 100 ML IVPB SCH (20:24)
[2020-07-14] MEDS: Enoxaparin Sodium 40 MG/0.4 ML SYRINGE SC SCH (20:25)
[2020-07-14] MEDS: Azelastine 137 MCG/Spray 30 ML NS SCH (20:34)
[2020-07-14] MEDS: Azithromycin 500 MG in Sodium Chloride 0.9% 250 ML 250 ML IVPB SCH (21:39)
[2020-07-15] MEDS: Mometasone 100 MCG/Formoterol 5 MCG 120 PUFF INHALER INH SCH ×2 (05:47→19:01)
[2020-07-15 06:01] LABS: Anion Gap 17 mmol/L (10-20); BUN (Urea Nitrogen) 44 mg/dL (9.8-20.1); Calc. Creatinine Clearance 49 mL/min (70-130); Calcium 8.3 mg/dL (7.8-10.44); Carbon Dioxide 24 mmol/L (23-31); Chloride 100 mmol/L (98-107); Glucose 201 mg/dL (80-115); Potassium 3.9 mmol/L (3.5-5.1); Sodium 137 mmol/L (136-145)
[2020-07-15] MEDS: Dexamethasone 4 mg/ml Vial SLOW IVP SCH (09:27)
[2020-07-15] MEDS: Spironolactone 25 MG TAB PO SCH (09:28)
[2020-07-15] MEDS: Amlodipine 10 MG TAB PO SCH (09:28)
[2020-07-15] MEDS: Torsemide 20 MG TAB PO SCH (09:28)
[2020-07-15] MEDS: Fluticasone Propionate Nasal Spray 16 gm Bottle NASAL SCH (09:29)
[2020-07-15] MEDS ORDERED: Polyethylene Glycol 3350 17 GM Packet PO PRN (11:32)
[2020-07-15] MEDS ORDERED: Docusate 100 MG CAP PO PRN (11:32)
[2020-07-15] MEDS: HumaLOG 300 UNITS/3 ML VIAL SC PRN ×3 (13:49→20:29)
[2020-07-15] MEDS: Azelastine 137 MCG/Spray 30 ML NS SCH (20:11)
[2020-07-15] MEDS: Azithromycin 500 MG in Sodium Chloride 0.9% 250 ML 250 ML IVPB SCH (20:12)
[2020-07-15] MEDS: cefTRIAXone\\ROCEPHIN 1 GM in Sodium Chloride 0.9% 100 ML IVPB SCH (20:13)
[2020-07-15] MEDS: Enoxaparin Sodium 40 MG/0.4 ML SYRINGE SC SCH (20:13)
[2020-07-16] MEDS: HumaLOG 300 UNITS/3 ML VIAL SC PRN (06:42)
[2020-07-16] MEDS: Mometasone 100 MCG/Formoterol 5 MCG 120 PUFF INHALER INH SCH (06:46)
[2020-07-16] MEDS: Spironolactone 25 MG TAB PO SCH (08:30)
[2020-07-16] MEDS: Torsemide 20 MG TAB PO SCH (08:30)
[2020-07-16] MEDS: Dexamethasone 4 mg/ml Vial SLOW IVP SCH (08:31)
[2020-07-16] MEDS: Fluticasone Propionate Nasal Spray 16 gm Bottle NASAL SCH (08:31)
[2020-07-16] MEDS: Amlodipine 10 MG TAB PO SCH (08:31)
[2020-07-16 11:57] VITALS: BP 111/72; TEMP 97.8
== END 2020-07-16 14:14 | disposition home or self-care (01) | DRG 177 ==
LOC: ERS 18:22 → T4-B 20:52
PROVIDERS: ADMIT Family Medicine; ATTEND Family Medicine
PROC: 8E0ZXY6 Isolation (ICD-10-PCS; principal; 2020-07-11)
DX: U07.1 COVID-19 (principal); J96.01 Acute respiratory failure with hypoxia; J90 Pleural effusion, not elsewhere classified; I12.9 Hypertensive chronic kidney disease with stage 1 through stage 4 chronic kidney disease, or unspecified chronic kidney disease; E11.22 Type 2 diabetes mellitus with diabetic chronic kidney disease; N18.30 Chronic kidney disease, stage 3 unspecified; K21.9 Gastro-esophageal reflux disease without esophagitis; E78.5 Hyperlipidemia, unspecified; E78.00 Pure hypercholesterolemia, unspecified; Z90.49 Acquired absence of other specified parts of digestive tract; Z90.710 Acquired absence of both cervix and uterus; Z98.51 Tubal ligation status; Z88.8 Allergy status to other drugs, medicaments and biological substances; Z79.899 Other long term (current) drug therapy; Z79.4 Long term (current) use of insulin
CPT/HCPCS: 36415; 36416; 71045; 71275; 80048; 80053; 81001; 83605; 83735; 83880; 84484; 85025; 85652; 86140; 87040; 93005; 93306; 94664; 94760; 96365; 96375; J0456; J0696; J1100; J1650; J1815; J3475; J3490; J7050; Q9967